=== PATIENT | male | born 1985 | race Caucasian/White ===

== ENCOUNTER 2016-11-20 03:29 | Emergency (ER) | payer OTHER ==
[2016-11-20] MEDS ORDERED: ACETAMINOPHEN 325 MG TABLET PO ONE (05:13)
[2016-11-20] MEDS ORDERED: IBUPROFEN 800 MG TABLET PO ONE (05:33)
[2016-11-20] MEDS ORDERED: LIDOCAINE 2% JELLY 5 ML TUBE TOP ONE (05:34)
[2016-11-20] MEDS ORDERED: KETOROLAC TROMETHAMINE 60 MG/2 ML SDV IM ONE (05:34)
[2016-11-20] MEDS ORDERED: CEFTRIAXONE INJ 250 MG VIAL IM ONE (05:42)
[2016-11-20] MEDS ORDERED: AZITHROMYCIN 1 GM SUSP PACKET PO ONE (05:42)
[2016-11-20] MEDS ORDERED: LIDOCAINE 1% INJ-PF (10 MG/ML) 30 ML SDV INFIL ONE (05:42)
[2016-11-20] MEDS ORDERED: HEPATITIS B VIRUS VACCINE-PF 5 MCG/0.5 ML VIAL IM ONE (05:55)
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
[2016-11-20 06:57] VITALS: BP 96/59
== END 2016-11-20 06:53 | disposition home or self-care (01) ==
LOC: ER 03:29
DX: T74.21XA Adult sexual abuse, confirmed, initial encounter (principal); S00.81XA Abrasion of other part of head, initial encounter; S60.512A Abrasion of left hand, initial encounter; S60.511A Abrasion of right hand, initial encounter; S80.212A Abrasion, left knee, initial encounter; S80.211A Abrasion, right knee, initial encounter; Y92.410 Unspecified street and highway as the place of occurrence of the external cause; F17.210 Nicotine dependence, cigarettes, uncomplicated; G40.909 Epilepsy, unspecified, not intractable, without status epilepticus; Z91.040 Latex allergy status
CPT/HCPCS: 99285; 96372; 87491; 87591; 36415; 86592; 87250; 86701; 86702; J1885; J3490; Q0144; J0696

== ENCOUNTER 2016-11-21 18:12 | Emergency (ER) | payer OTHER ==
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
[2016-11-21] MEDS ORDERED: ONDANSETRON HCL INJ/PF 4 MG/2 ML SDV IV ONE (19:24)
[2016-11-21] MEDS ORDERED: NORMAL SALINE 1000 ML 1,000 ML IV ONE (19:24)
[2016-11-21] MEDS ORDERED: HYDROMORPHONE HCL INJ/PF 2 MG/ML AMPULE IV ONE (19:25)
[2016-11-21 20:39] LABS: ABSOLUTE BASOPHILS # (AUTO) 0.1 10^3/uL (0.0-0.2); ABSOLUTE EOSINOPHILS # (AUTO) 0.2 10^3/uL (0.0-0.6); ABSOLUTE LYMPHOCYTES (AUTO) 1.9 10^3/uL (0.5-4.7); ABSOLUTE NEUT (AUTO) 6.7 10^3/uL (1.7-8.2); BASOPHILS % (AUTO) 0.7 % (0-2); EOSINOPHILS % (AUTO) 2.2 % (0-6); HEMATOCRIT 41.2 % (37.9-51.0); HEMOGLOBIN 14.3 g/dL (13.5-17.0); HGB HCT DIFFERENCE 1.7; LYMPHOCYTES % (AUTO) 19.4 % (13-45); MEAN CORPUSCULAR HEMOGLOBIN 33.1 pg (27.0-33.4); MEAN CORPUSCULAR HGB CONC 34.7 g/dL (32.0-36.0); MEAN CORPUSCULAR VOLUME 95 fl (80-97); MONOCYTES % (AUTO) 9.9 % (3-13); RED BLOOD COUNT 4.33 10^6/uL (4.35-5.55); RED CELL DISTRIBUTION WIDTH 13.1 % (11.5-14.0); SEGMENTED NEUTROPHILS % (AUTO) 67.8 % (42-78); WHITE BLOOD COUNT 9.8 10^3/uL (4.0-10.5)
[2016-11-21 20:41] LABS: AMORPHOUS SEDIMENT,URINE TRACE /HPF; APPEARANCE,URINE CLOUDY; BILIRUBIN,URINE NEGATIVE (NEGATIVE); GLUCOSE, URINE NEGATIVE (NEGATIVE); KETONES,URINE NEGATIVE (NEGATIVE); LEUKOCYTE ESTERASE,URINE NEGATIVE (NEGATIVE); NITRITE,URINE NEGATIVE (NEGATIVE); PROTEIN,URINE 30 mg/dL (NEGATIVE); URINE SPECIFIC GRAVITY 1.015; UROBILINOGEN,URINE NEGATIVE mg/dL (<2.0)
[2016-11-21 20:47] LABS: ALANINE AMINOTRANSFERASE 24 U/L (21-72); ALBUMIN 5.1 g/dL (3.5-5.0); ALKALINE PHOSPHATASE 57 U/L (38-126); ANION GAP 18 (5-19); ASPARTATE AMINO TRANSFERASE 43 U/L (17-59); BILIRUBIN,DIRECT 0.4 mg/dL (0.0-0.4); BILIRUBIN,TOTAL 0.8 mg/dL (0.2-1.3); BLOOD UREA NITROGEN 10 mg/dL (7-20); CALCIUM 10.1 mg/dL (8.4-10.2); CARBON DIOXIDE 28 mmol/L (22-30); CHLORIDE 103 mmol/L (98-107); CREATININE RESULT 1.01 mg/dL (0.52-1.25); GLUCOSE 93 mg/dL (75-110); POTASSIUM 3.9 mmol/L (3.6-5.0); SODIUM 148.6 mmol/L (137-145); TOTAL PROTEIN 8.3 g/dL (6.3-8.2)
[2016-11-22] MEDS: HYDROCODONE/ACETAMINOPHEN 5-325 MG 6 TAB/DSPK PO PRN ×2 (01:00→01:05)
[2016-11-22 01:15] VITALS: BP 118/96
== END 2016-11-22 01:13 | disposition home or self-care (01) ==
LOC: ER 18:12 → EEVIPCON 18:12 → ER 11-22 01:13
DX: K60.2 Anal fissure, unspecified (principal); R19.5 Other fecal abnormalities; T76.21XD Adult sexual abuse, suspected, subsequent encounter
CPT/HCPCS: 99285; 96361; 96374; 96375; 36415; 85025; 80053; 81001; 83605; 74177; J1170; J2405; J7030